=== PATIENT | female | born 1995 | race Caucasian/White ===

== ENCOUNTER 2018-03-14 10:04 | Day surgery (SDC) | payer OTHER ==
[~2018-03-14 10:04] MED LIST: CEFAZOLIN 1 GM/D5W RTU 1 GM/50 ML RTUPB IV PRN; MIDAZOLAM 2 MG/2 ML INJ ONE
[2018-03-14] MEDS ORDERED: POLYMYXIN B SULFATE INJ 500000 UNIT VIAL ONE (10:46)
[2018-03-14] MEDS ORDERED: BACITRACIN INJ 50,000 UNIT VIAL ONE (10:47)
[2018-03-14] MEDS ORDERED: BUPIVACAINE INJ/PF LIPOSOME/PF 266 MG/20 ML SDV ONE (10:47)
[2018-03-14] MEDS ORDERED: NORMAL SALINE INJ/PF 0.9% 10 ML SDV ONE (10:47)
[2018-03-14] MEDS ORDERED: ONDANSETRON HCL INJ/PF 4 MG/2 ML SDV ONE (10:59)
[2018-03-14] MEDS ORDERED: KETAMINE HCL INJ 500 MG/10 ML VIAL ONE (10:59)
[2018-03-14] MEDS ORDERED: DEXAMETHASONE SOD PHOS INJ 10 MG/1 ML VIAL ONE (10:59)
[2018-03-14] MEDS ORDERED: ACETAMINOPHEN 1,000 MG/100 ML RTUPB IV ONE (11:51)
[2018-03-14] MEDS ORDERED: PROMETHAZINE HCL INJ 25 MG/1 ML VIAL ONE ×2 (13:10→13:54)
--- NOTE | 2018-03-14 13:31 | RADIOLOGY REPORT (SQ) ---
EXAM DESCRIPTION: NO CHG FLUORO; FOOT LEFT 2 VIEWS COMPLETED DATE/TIME: 03/14/2018 1:12 pm REASON FOR STUDY: LEFT FOOT BUNIONECTOMY ASSISTED W/ FLUORO IN OR M20.12 HALLUX VALGUS (ACQUIRED), LEFT FOOT COMPARISON: None. FLUOROSCOPY TIME: 8 seconds. 2 images saved to PACS. TECHNIQUE: Intra-operative images acquired during surgical procedure to evaluate progress. NUMBER OF IMAGES: 2 images. LIMITATIONS: None. FINDINGS: Images of the great toe acquired during bunionectomy. IMPRESSION: IMAGE(S) OBTAINED DURING PROCEDURE. COMMENT: Quality ID 145: Final reports for procedures using fluoroscopy that document radiation exp osure indices, or exposure time and number of fluorographic images (if radiation exposure indices are not available) Please consult full operative report of the attending physician for description of the procedure. TECHNICAL DOCUMENTATION: JOB ID: [id number] [employer]- All Rights Reserved Reading location - IP/workstation name: [email or web address]
--- NOTE | 2018-03-14 13:31 | RADIOLOGY REPORT (SQ) ---
EXAM DESCRIPTION: NO CHG FLUORO; FOOT LEFT 2 VIEWS COMPLETED DATE/TIME: 03/14/2018 1:12 pm REASON FOR STUDY: LEFT FOOT BUNIONECTOMY ASSISTED W/ FLUORO IN OR M20.12 HALLUX VALGUS (ACQUIRED), LEFT FOOT COMPARISON: None. FLUOROSCOPY TIME: 8 seconds. 2 images saved to PACS. TECHNIQUE: Intra-operative images acquired during surgical procedure to evaluate progress. NUMBER OF IMAGES: 2 images. LIMITATIONS: None. FINDINGS: Images of the great toe acquired during bunionectomy. IMPRESSION: IMAGE(S) OBTAINED DURING PROCEDURE. COMMENT: Quality ID 145: Final reports for procedures using fluoroscopy that document radiation exp osure indices, or exposure time and number of fluorographic images (if radiation exposure indices are not available) Please consult full operative report of the attending physician for description of the procedure. TECHNICAL DOCUMENTATION: JOB ID: [id number] [employer]- All Rights Reserved Reading location - IP/workstation name: [email or web address]
--- NOTE | 2018-03-14 13:42 | [facility] OPERATIVE REPORT E ---
[facility] NAME: CHILO ARNDT AGE: 22Y DATE OF SURGERY: 03/14/2018 ROOM: PREOPERATIVE DIAGNOSIS: Hallux abductovalgus, left foot. POSTOPERATIVE DIAGNOSIS: Hallux abductovalgus, left foot. SURGICAL PROCEDURE: Correction of bunion by Marck osteotomy with internal fixation, left foot. SURGEON: NIVIA ALTAMIRANO DPM WINTER SPORTS MANAGER: Andres Frias DPM ANESTHESIA: General. PROCEDURE: Following the induction of general anesthesia, the left foot was locally anesthetized. The left foot and leg were then prepped and draped in the usual sterile manner. A pneumatic tourniquet was placed around the left ankle and inflated to 250 mmHg after exsanguination of the limb via Esmarch bandage. The following surgical procedure was then performed: Correction of bunion by Marck osteotomy with internal fixation, left foot. Attention was directed to the first metatarsophalangeal joint of the left foot where an approximately 4 cm dorsolinear incision was made. The incision was deepened via sharp dissection. All bleeders were clamped and bovied as necessary for the purposes of hemostasis. A capsular incision was made in the same manner as the original skin incision, and the capsule was reflected medially from the bone. Attention was directed to the first metatarsal space where utilizing tenotomy scissors the transverse adductor tendon was identified, isolated, and sharply incised. Attention was directed back to the hypertrophied medial aspect of the first metatarsal head where utilizing a Reasnor sagittal saw the hypertrophied medial eminence was osteotomized parallel to the long axis of the bone and removed en toto from the wound. Attention was then directed to the base of the proximal phalanx where approximately 1 cm distal to the joint an Marck osteotomy was performed. The Marck osteotomy was placed so that the apex was lateral and the base was medial. An approximately 3 mm wedge of bone was removed. The osteotomy was then feathered down on itself using the Reasnor sagittal saw until it closed down. The osteotomy was temporarily fixated with a 0.86 guidewire that was directed from proximal medial to distal lateral. An x-ray was taken and it was noted that the wire was in good position and the osteotomy was closed down on itself. The measure reamer was then threaded down the guidewire and it was noted that a 20 mm x 2.3 cancellous screw would be needed. The proximal aspect of the osteotomy was then overdrilled utilizing a 1.7 mm drill bit. The 20 mm x 2.3 cancellous screw was threaded down the guidewire, and it was tightened down until the osteotomy was stably fixated. The guidewire was removed and another x-ray was taken. It was noted that the screw was in good position, that the first metatarsophalangeal joint was in a more anatomically correct position, and that the osteotomy was closed. The medial aspect of the first metatarsal head was then rasped smooth utilizing a [employer] rasp. The area was then flushed with copious amounts of an antibacterial saline solution. Bone wax was applied to the medial aspect of the first metatarsal head. The capsule was then coaptated and maintained utilizing simple interrupted sutures of 3-0 Vicryl. The subcutaneous tissue was coaptated and maintained utilizing simple interrupted sutures of 4-0 Vicryl. Then 17 mL of Exparel was then injected subcutaneously along the incision and the surgical site. The skin was then coaptated and maintained utilizing a running subcuticular suture of 5-0 Vicryl. The skin was then cleansed with an alcohol foam, Benzoin was applied along the length of the incision, and 1/8th inch Steri-Strips were applied to the incision. A dry sterile dressing was then applied consisting of Dar silk, 4 x 4's, Conform, Kerlix, and Coban. The pneumatic tourniquet was released, and it was noted that all digits were warm and viable. The patient was transferred to the recovery room. DICTATING PHYSICIAN: NIVIA ALTAMIRANO D.P.M. [id number] PHY#: [id number] ID: [id number] JOB#: [id number] ACCT: [id number] cc:NIVIA ALTAMIRANO DPM > JOSE EDUARDO
--- NOTE | 2018-03-14 14:07 | [facility] DISCHARGE SUMMARY E ---
[facility] Discharge Summary NAME: CHILO ARNDT AGE: 22Y ADMITTED: 03/14/2018 DISCHARGED: 03/14/2018 SURGICAL PROCEDURE: Correction of bunion by Marck osteotomy with internal fixation, left foot. POSTOPERATIVE DIAGNOSIS: Hallux abductovalgus, left foot. SURGEON: Nivia Way DPM OPERATER: Anrdes Frias DPM HOSPITAL COURSE: The patient was admitted to [facility] with a chief complaint of a painful bunion on her left foot. She stated that she has had the bunion since she was a teenager and that it hurt whenever she walks in her shoes. The patient tried conservative therapy with no change in her symptoms and requested to have this problem surgically corrected. She underwent the above surgical procedure without any complications and was transferred to the recovery room. She was discharged with a surgical shoe and ice pack and postoperative instructions. She was also told not to weight bear on the surgical foot. She was discharged from [facility]. She was given a followup appointment in the doctor's office in 1 week. DICTATING PHYSICIAN: NIVIA WAY D.P.M. [id number] PHY#: [id number] ID: [id number] JOB#: [id number] ACCT: [id number] cc:NIVIA WAY DPM > JOSE EDUARDO
== END 2018-03-14 15:00 | disposition home or self-care (01) ==
LOC: SC 10:04
PROVIDERS: ATTEND Podiatrist Foot Surgery
DX: M20.12 Hallux valgus (acquired), left foot (principal); Z79.1 Long term (current) use of non-steroidal anti-inflammatories (NSAID); Z79.899 Other long term (current) drug therapy; Z88.8 Allergy status to other drugs, medicaments and biological substances
CPT/HCPCS: 28298; 73620; C1769; C1713; J2250; J3490 ×4; J0690; J2550; J2405; J1100; J0131; C9290; 01480

== ENCOUNTER 2019-03-06 06:38 | Day surgery (SDC) | payer OTHER ==
[~2019-03-06 06:38] MED LIST changes: -CEFAZOLIN 1 GM/D5W RTU 1 GM/50 ML RTUPB IV PRN; +CEFAZOLIN 1 GM/D5W RTU 1 GM/50 ML RTUPB IV SCH; +LACTATED RINGERS 1000 ML IV PRN; +LIDOCAINE 0.5% INJ-PF (5 MG/ML) 50 ML SDV SUBCUT PRN; -MIDAZOLAM 2 MG/2 ML INJ ONE
[2019-03-06] MEDS ORDERED: MIDAZOLAM 2 MG/2 ML INJ ONE (06:55)
[2019-03-06] MEDS ORDERED: FENTANYL CITRATE INJ/PF 100 MCG/2 ML AMPUL ONE (06:55)
[2019-03-06] MEDS ORDERED: ONDANSETRON HCL INJ/PF 4 MG/2 ML SDV ONE (06:55)
[2019-03-06] MEDS ORDERED: DEXMEDETOMIDINE INJ 80 MCG/20 ML VIAL IV ONE (06:55)
[2019-03-06] MEDS ORDERED: PROPOFOL INJ 200 MG/20 ML VIAL IV ONE (06:56)
[2019-03-06] MEDS ORDERED: LIDOCAINE 2% INJ-PF (100 MG/5 ML) SYRINGE ONE (06:57)
[2019-03-06] MEDS ORDERED: DEXAMETHASONE SOD PHOSPHATE INJ 4 MG/1 ML VIAL ONE ×2 (06:57→07:28)
[2019-03-06] MEDS ORDERED: POLYMYXIN B SULFATE INJ 500000 UNIT VIAL ONE (07:08)
[2019-03-06] MEDS ORDERED: BUPIVACAINE HCL 0.5 % INJ/PF 30 ML SDV ONE (07:08)
[2019-03-06] MEDS ORDERED: BACITRACIN INJ 50,000 UNIT VIAL ONE (07:08)
[2019-03-06] MEDS ORDERED: LIDOCAINE 2% INJ (20 MG/ML) 20 ML MDV ONE (07:08)
[2019-03-06] MEDS ORDERED: NORMAL SALINE INJ/PF 0.9% 10 ML SDV ONE (07:08)
[2019-03-06] MEDS ORDERED: BUPIVACAINE INJ/PF LIPOSOME/PF 266 MG/20 ML SDV ONE (07:09)
[2019-03-06] MEDS ORDERED: KETAMINE HCL INJ 500 MG/10 ML VIAL ONE (07:28)
[2019-03-06] MEDS ORDERED: FAMOTIDINE INJ/PF 20 MG/2 ML SDV IV ONE (07:29)
[2019-03-06] MEDS ORDERED: ACETAMINOPHEN 0 MG/0 ML RTUPB IV ONE (07:29)
--- NOTE | 2019-03-06 08:22 | PDOC DISCHARGE SUMMARY ---
Discharge Summary-[facility] Discharge Summary: Name: Ludy Bullard Age: 22 Admitted: 03/06/2019 Discharged: 03/06/2019 Preoperative diagnosis: Hallux abductovalgus right foot Surgeon: Sandra Way D.P.M. Hospital course: Patient was admitted to surgery care with a chief complaint of a painful bunion on her right foot. She stated that she has had the bunion since she was a teenager and that it hurt whenever she walks in her shoes. The patient tried conservative therapy with no change in her symptoms and requested to have the problem surgically corrected. Patient's surgery was canceled due to a recent family history of malignant hyperthermia.
== END 2019-03-06 08:56 | disposition home or self-care (01) ==
LOC: SC 06:38
PROVIDERS: ATTEND Podiatrist Foot Surgery
DX: M20.11 Hallux valgus (acquired), right foot (principal); Z84.89 Family history of other specified conditions
CPT/HCPCS: J2250; J0690; J3490; J2405; S0028; C9290; J0131; J1100; J2001; J2704; J3010

== ENCOUNTER 2019-04-24 06:24 | Day surgery (SDC) | payer OTHER ==
[~2019-04-24 06:24] MED LIST changes: +CEFAZOLIN 1 GM/D5W RTU 1 GM/50 ML RTUPB IV PRN; -CEFAZOLIN 1 GM/D5W RTU 1 GM/50 ML RTUPB IV SCH
[2019-04-24] MEDS ORDERED: MIDAZOLAM 2 MG/2 ML INJ ONE (06:39)
[2019-04-24] MEDS ORDERED: ONDANSETRON HCL INJ/PF 4 MG/2 ML SDV ONE (06:39)
[2019-04-24] MEDS ORDERED: DEXAMETHASONE SOD PHOSPHATE INJ 4 MG/1 ML VIAL ONE (06:40)
[2019-04-24] MEDS ORDERED: SUCCINYLCHOLINE CHLORIDE INJ 200 MG/10 ML VIAL ONE (06:40)
[2019-04-24] MEDS ORDERED: FENTANYL CITRATE INJ/PF 100 MCG/2 ML AMPUL ONE (06:40)
[2019-04-24] MEDS ORDERED: ETOMIDATE INJ/PF 20 MG/10 ML SDV IV ONE (06:40)
[2019-04-24] MEDS ORDERED: DEXMEDETOMIDINE INJ 80 MCG/20 ML VIAL IV ONE (06:41)
[2019-04-24] MEDS ORDERED: POLYMYXIN B SULFATE INJ 500000 UNIT VIAL ONE (07:11)
[2019-04-24] MEDS ORDERED: BUPIVACAINE HCL 0.5 % INJ/PF 30 ML SDV ONE (07:39)
[2019-04-24] MEDS ORDERED: LIDOCAINE 2% INJ (20 MG/ML) 20 ML MDV ONE (07:39)
[2019-04-24] MEDS ORDERED: KETOROLAC TROMETHAMINE INJ/PF 30 MG/1 ML SDV ONE (07:51)
[2019-04-24] MEDS: BUPIVACAINE INJ/PF LIPOSOME/PF 266 MG/20 ML SDV ONE ×2 (08:25→08:55)
[2019-04-24] MEDS: NORMAL SALINE INJ/PF 0.9% 10 ML SDV ONE ×2 (08:45)
[2019-04-24] MEDS: BACITRACIN INJ 50,000 UNIT VIAL ONE ×2 (08:45)
--- NOTE | 2019-04-24 09:27 | RADIOLOGY REPORT (SQ) ---
EXAM DESCRIPTION: FOOT RIGHT 2 VIEWS; NO CHG FLUORO COMPLETED DATE/TIME: 04/24/2019 9:18 am REASON FOR STUDY: LATASHA BUNIONECTOMY M20.11 HALLUX VALGUS (ACQUIRED), RIGHT FOOT COMPARISON: None. FLUOROSCOPY TIME: 8 seconds 4 digital C-arm images saved to PACS. TECHNIQUE: Intra-operative images acquired during surgical procedure to evaluate progress. NUMBER OF IMAGES: 4 digital C-arm images LIMITATIONS: None. FINDINGS: 4 digital C-arm images during great toe proximal phalanx osteotomy and screw placement. P bryce see the operative report for further details. IMPRESSION: IMAGE(S) OBTAINED DURING PROCEDURE. COMMENT: Quality ID 145: Final reports for procedures using fluoroscopy that document radiation exp osure indices, or exposure time and number of fluorographic images (if radiation exposure indices are not available) Please consult full operative report of the attending physician for description of the procedure. TECHNICAL DOCUMENTATION: JOB ID: [id number] 2010 [employer]- All Rights Reserved Reading location - IP/workstation name: [email or web address]
--- NOTE | 2019-04-24 09:27 | RADIOLOGY REPORT (SQ) ---
EXAM DESCRIPTION: FOOT RIGHT 2 VIEWS; NO CHG FLUORO COMPLETED DATE/TIME: 04/24/2019 9:18 am REASON FOR STUDY: ALTASHA BUNIONECTOMY M20.11 HALLUX VALGUS (ACQUIRED), RIGHT FOOT COMPARISON: None. FLUOROSCOPY TIME: 8 seconds 4 digital C-arm images saved to PACS. TECHNIQUE: Intra-operative images acquired during surgical procedure to evaluate progress. NUMBER OF IMAGES: 4 digital C-arm images LIMITATIONS: None. FINDINGS: 4 digital C-arm images during great toe proximal phalanx osteotomy and screw placement. P bryce see the operative report for further details. IMPRESSION: IMAGE(S) OBTAINED DURING PROCEDURE. COMMENT: Quality ID 145: Final reports for procedures using fluoroscopy that document radiation exp osure indices, or exposure time and number of fluorographic images (if radiation exposure indices are not available) Please consult full operative report of the attending physician for description of the procedure. TECHNICAL DOCUMENTATION: JOB ID: [id number] 2010 [employer]- All Rights Reserved Reading location - IP/workstation name: [email or web address]
--- NOTE | 2019-04-24 09:50 | Operative Report ---
Operative Report DATE OF SURGERY: 04/24/19 PREOPERATIVE DIAGNOSIS: Hallux abductovalgus right foot POSTOPERATIVE DIAGNOSIS: Hallux abductovalgus right foot OPERATION: Correction of bunion by Marck osteotomy with ISF right foot SURGEON: NIVIA RAZO MACHINE COMPOSITOR: MARY PEREZ ANESTHESIA: GA TISSUE REMOVED OR ALTERED: Bone, not sent for pathology COMPLICATIONS: The initial screw stripped dorsally when inserted into the reamed hole; a new hole was made for the screw and that fit perfectly. ESTIMATED BLOOD LOSS: Less then 0.1 mL PROCEDURE: Following induction of general anesthesia, a field block was performed around the surgical site utilizing 17 mL of a 50-50 mixture of 2% lidocaine and 0.5% Marcaine plain. The right foot and leg were then prepped and draped in the usual sterile manner. A pneumatic tourniquet was placed around the right ankle and inflated to 250 mmHg after exsanguination of the limb via Esmarch bandage. The following surgical procedure was then performed: Correction of bunion by [place] osteotomy with internal fixation right foot. Attention was directed to the dorsal aspect of the first metatarsal phalangeal joint of the right foot where an approximately 4 cm dorsal linear incision was made. The incision was deepened via sharp dissection all bleeders were clamped and bovied as necessary for the purposes of hemostasis. A capsular incision was made in the same manner as the original skin incision and made medial to the extensor hallucis longus tendon. The capsule was then reflected medially from the bone thus bringing into view the hypertrophied medial eminence of the first metatarsal head. Utilizing a Marsland sagittal saw the hypertrophied medial eminence of the first metatarsal head was osteotomized parallel to the long axis of the bone and removed in toto from the wound. Attention was then directed into the interspace utilizing blunt dissection the transverse adductor tendon was identified and sharply incised. Attention was then directed to the proximal phalanx of the hallux where an Macrk osteotomy was then performed. Utilizing a [place] sagittal saw the osteotomy was placed so that the apex was lateral and the base was medial, an approximately 2 mm wedge of bone was removed. The osteotomy was then feathered utilizing the Rosemary saw until it closed down on itself. The osteotomy was then temporarily fixated utilizing a 0.86 guidewire which was directed from proximal medial to distal lateral. An x-ray was taken with the C arm to make sure that the guidewire was in good position and it was. The reamer/measure was then threaded down the guidewire and a hole was made to accept the head of the screw and it was noted that a 22 mm 2.3 cancellus screw would be needed. The proximal aspect of the osteotomy was then overdrilled utilizing a 1.7 mm drill bit. The 22 mm by 2.3 cancellus screw was threaded down the guidewire and as it was being screwed into the bone is stripped dorsally through the bone. The original guidewire was removed and was replaced so that it was proximal to the original screw hole. The reamer was then threaded down the guidewire and a hole was enlarged to accept the head of the screw. The site was then overdrilled utilizing the 1.7 mm drill bit. The 22 mm by 2.3 cancellus screw was then threaded down the guidewire and was tightened into place. It was noted that the screw head did not interfere or violate the cartilage at either the base of the proximal phalanx or the head of the first metatarsal. X-ray was taken it was noted that the screw was in excellent position and that the osteotomy was closed down on itself. Needle aspect of the first metatarsal head was then rasped smooth utilizing a [employer] rasp. The surgical site was then flushed with copious amounts of an antibacterial saline solution. Bone wax was then applied to the medial aspect of the first metatarsal head. The capsule was then coaptated and maintained utilizing simple interrupted sutures of 3-0 Vicryl. The tendon was tacked medially utilizing a simple interrupted suture of 3-0 Vicryl. The subcutaneous tissue was then coaptated and maintained utilizing simple interrupted sutures of 4-0 Vicryl. 17 mL of Exparel was injected subcutaneously along the incision and around the surgical site. Skin was coaptated and maintained utilizing a running subcuticular suture of 5-0 Vicryl. It was then cleansed with an alcohol foam. Benzoin and 1/8" Steri-Strips were then applied to the incision. A dry sterile dressing was then applied consisting of Dar silk 4 x 4's conform Kerlix and Coban. The pneumatic tourniquet was released it was noted that all digits were warm and viable and the patient was transferred to the recovery room.
--- NOTE | 2019-04-24 09:54 | PDOC DISCHARGE SUMMARY ---
Discharge Summary-[facility] Discharge Summary: Date of admission: April 24, 2019. Date of discharge: April 24, 2019. Preoperative diagnosis: Hallux abductovalgus right foot. Postoperative diagnosis hallux abductovalgus right foot. Surgical procedure: Correction of bunion by Marck osteotomy with internal fixation right foot. Surgeon: Sandra Way D.P.M. Cafeteria Manager: Andres Frias D.P.M. Patient was admitted to [facility] with a chief complaint of a painful bunion on her right foot. She stated that she has had it for several years and that conservative therapy did not help. Stated that since she had such a good result from surgery on her left bunion she wanted to have the same thing done to her right bunion. She underwent the above surgical procedure without any complications and was transferred to the recovery room. She was discharged with a surgical shoe, an ice pack, and postoperative instructions. Patient was given a follow-up appointment in the doctor's office for April 29. She was discharged from [facility].
[2019-04-24] MEDS: PROMETHAZINE HCL INJ 25 MG/1 ML VIAL ONE ×2 (10:00→10:20)
[2019-04-24] MEDS ORDERED: SCOPOLAMINE HYDROBROMIDE 1.5 MG PATCH.TD72 TD ONE (11:15)
== END 2019-04-24 11:20 | disposition home or self-care (01) ==
LOC: SC 06:24
PROVIDERS: ATTEND Podiatrist Foot Surgery
DX: M20.11 Hallux valgus (acquired), right foot (principal); Z88.8 Allergy status to other drugs, medicaments and biological substances
CPT/HCPCS: 28298; 73620; 01480; C1713; C1769; J2250; J3490 ×7; J0690; J1100; J3010; J1885; J2550; J0330; J2405; C9290